=== PATIENT | female | born 1980 ===

== ENCOUNTER → 2017-09-14 | Day surgery (SDC) | payer OTHER ==
[~2017-09-14] MED LIST: LOSARTAN POTASS50 MG; PERCOCET 5-3251 EACH PO; POLY119PG PO; SURFAK240 M1 PO
== END | disposition home or self-care (01) ==
LOC: ADM 09-08 09:00 → CIR.AMB 06:00
DX: K80.10 Calculus of gallbladder with chronic cholecystitis without obstruction (principal); K42.9 Umbilical hernia without obstruction or gangrene; K43.2 Incisional hernia without obstruction or gangrene

== ENCOUNTER 2018-03-07 18:39 | Inpatient (IN) | payer OTHER ==
[~2018-03-07] VITALS: Ht 162.6 cm; Wt 68.0 kg
[2018-03-08] MEDS ORDERED: COZAAR25 MG PO (11:00)
== END 2018-03-10 17:04 | disposition home or self-care (01) | DRG 621 ==
LOC: SURG 03-09 05:30 → O/R 03-09 05:30 → SURH 03-09 07:00 → SURG 03-09 17:24
PROVIDERS: Specialist
PROC: 0J0D0ZZ Alteration of Right Upper Arm Subcutaneous Tissue and Fascia, Open Approach (ICD-10-PCS; 2018-03-09)
PROC: 0J0F0ZZ Alteration of Left Upper Arm Subcutaneous Tissue and Fascia, Open Approach (ICD-10-PCS; 2018-03-09)
PROC: 0J0 Subcutaneous Tissue and Fascia, Alteration (ICD-10-PCS; 2018-03-09)
PROC: 0HBV0ZZ Excision of Bilateral Breast, Open Approach (ICD-10-PCS; 2018-03-09)
PROC: 0HRV0JZ Replacement of Bilateral Breast with Synthetic Substitute, Open Approach (ICD-10-PCS; 2018-03-09)
PROC: 0J080ZZ Alteration of Abdomen Subcutaneous Tissue and Fascia, Open Approach (ICD-10-PCS; principal; 2018-03-09 07:00)
PROC: 0J0 Subcutaneous Tissue and Fascia, Alteration (ICD-10-PCS; 2018-03-09 07:00)
DX: E65 Localized adiposity (principal); N65.0 Deformity of reconstructed breast; E66.01 Morbid (severe) obesity due to excess calories